=== PATIENT | male | born 1955 | race African-American/Black ===

== ENCOUNTER 2024-08-28 12:21 | Observation (INO) ==
--- NOTE | 2024-08-28 12:39 | Emergency Department Note ---
HPI - Dental/Oral General Chief complaint: Dental/Oral Stated complaint: face swollen Time Seen by Provider: 08/28/24 12:24 Source: patient Mode of arrival: walk-in Limitations: no limitations History of Present Illness HPI Narrative: 68 Y/O Male presents to the ED with c/o of left facial swelling since Tuesday morning, denies fever, chills, reports he can barely eat or drink with the swelling. Onset (ago): day(s) (4) Duration: constant Severity: moderate Relieving factors: Reports nothing Exacerbating factors: Reports swallowing Associated symptoms: Reports gum swelling and pain with swallowing; Denies ear pain or sore throat Treatment prior to arrival: Reports none Related Data Previous Rx's Medication Instructions Recorded cephalexin 500 mg capsule 500 mg PO Q8H toe infection 7 days 03/23/24 #21 caps Allergies Allergy/AdvReac Type Severity Reaction Status Date / Time No Known Drug Allergies Allergy Verified 08/28/24 12:52 PFSH PFSH Medical History Thrombocytosis HTN (hypertension) Social History Smoking status: current every day smoker What tobacco products do you use: cigarettes Cigarettes per day: 4 Within the past year, how often did you have a drink containing alcohol: never Score interpretation: A score less than 4 is consistent with normal alcohol consumption. Non-prescribed substance use: denies use Little interest or pleasure in doing things: not at all Feeling down, depressed, or hopeless: not at all Exam Exam: 68 Y/o male presents to the ED with conc erns for swelling of the left face for the last 4 days. Denies recent facial injury. Denies recent oral surgery. Denies fever or chills. Denies bleeding gums or uncontrolled drooling. Reports pain with swallowing. Constitutional: normal general appearance and no apparent distress Vital Signs - 24 hr 08/28/24 12:25 08/28/24 13:00 08/28/24 13:10 Temperature 98.7 F Pulse Rate 95 H 92 H 95 H Respiratory Rate 16 16 16 Blood Pressure 145/104 139/101 129/89 Pulse Oximetry 98 98 98 Oxygen Delivery Me thod Room Air Room Air Room Air 08/28/24 13:30 08/28/24 14:00 08/28/24 14:30 Temperature Pulse Rate 92 H 93 H 92 H Respiratory Rate 16 16 16 Blood Pressure 147/97 139/97 140/95 Pulse Oximetry 98 98 98 Oxygen Delivery Me thod Room Air Room Air Room Air 08/28/24 15:00 08/28/24 15:30 08/28/24 16:00 Temperature Pulse Rate 90 88 91 H Respiratory Rate 16 16 16 Blood Pressure 137/96 141/92 152/93 Pulse Oximetry 98 98 98 Oxygen Delivery Me thod Room Air Room Air Room Air HENMT: normocephalic and oral mucous membranes normal Facial swelling noted. Gingiva swelling noted, left upper back. Eyes: PERRL and EOMs intact bilaterally Lymph: no lymphadenopathy noted Chest: inspection of chest normal Respiratory: breath sounds equal bilaterally, normal respiratory effort, no retractions and no use of accessory muscles Cardiovascular: normal heart rate noted and regular rhythm noted Gastrointestinal: abdomen soft to palpation Extremities: normal to inspection, normal to palpation and no tenderness Neurology: gait normal, speech normal and GCS normal Psychiatry: oriented x3, cooperative, affect normal and memory normal Skin: skin color normal Course Course Hospital Course: Patient seen today for facial swelling, left side for the last 4 days. Denies any facial injuries. CT noted facial cellulitis. WBC elevated. Patient admitted for IV antibiotic therapy. I spoke with Dr. Zhao who agrees to accept and assume care of this patient. Clindamycin IV ordered Q8 hours PRN pain and Antiemetic ordered. Reevaluation(s) Reevaluation #1: Patient is satble and reports pain free at this time. We discussed admission plans, patient agrees to admission. Time: 16:08 Vital Signs Vital signs: Vital Signs Temperature 98.7 F 08/28/24 12:25 Pulse Rate 95 H 08/28/24 12:25 Respiratory Rate 16 08/28/24 12:25 Blood Pressure 145/104 08/28/24 12:25 Pulse Oximetry 98 08/28/24 12:25 Oxygen Delivery Method Room Air 08/28/24 12:25 Temperature 98.7 F 08/28/24 12:25 Pulse Rate 91 H 08/28/24 16:00 Respiratory Rate 16 08/28/24 16:00 Blood Pressure 152/93 08/28/24 16:00 Pulse Oximetry 98 08/28/24 16:00 Oxygen Delivery Method Room Air 08/28/24 16:00 MDM - Dental/Oral Differential Diagnosis Differential diagnosis: Likely dental caries Medical Records Attestation: I reviewed the patient's medical records. Lab Data Attestation: I reviewed the patient's lab results. Labs: Lab Results 08/28/24 Range/Units 12:45 WBC 9.7 H (3.7-9.6) K/uL RBC 4.2 L (4.40-5.80) M/uL Hgb 16.5 (14.0-17.4) gm/dL Hct 47.8 (41.3-50.1) % MCV 112.8 H (81.9-96.5) fl MCH 39.1 H (27.6-33.7) pg MCHC 34.6 (33.0-35.7) g/dl RDW 15.2 H (11.0-14.8) % Plt Count 491 H (142-355) K/uL MPV 8.9 (6.0-10.4) fl Gran % 73.4 H (49.1-73.1) % Lymph % (Auto) 10.4 L (17.6-39.05) % [place] % (Auto) 15.6 H (4.5-10.7) % Eos % (Auto) 0.2 (0.0-4.0) % Baso % (Auto) 0.4 (0.0-1.3) Lymph # (Auto) 1.0 (0.8-2.9) [place] # (Auto) 1.5 H (0.2-0.8) Eos # (Auto) 0.0 (0.0-0.3) Baso # (Auto) 0.0 (0.0-0.1) Absolute Gran (auto) 7.1 H (2.0-6.2) Sodium 137 (136-145) mmol/L Potassium 4.3 (3.6-5.2) mmol/L Chloride 98.0 (98-107) mmol/L Carbon Dioxide 30 (21-32) mmol/L Anion Gap 9.0 (4-14) mEq/L BUN 8 (7-18) mg/dL Creatinine 1.0 (0.6-1.3) mg/dL Estimated GFR 82.5 (>59.9) Glucose 123 H (70-110) mg/dL Calcium 9.7 (8.5-10.1) mg/dL Imaging Data Imaging ordered: other Attestation: I have reviewed the pertinent imaging results. My impression: CT FACIAL BONES W CON HISTORY: LEFT SIDE FACIAL SWELLING; . COMPARISON STUDY: None. TECHNIQUE: Multiple thin section axial images were obtained through the facial bones with IV contrast. Coronal reformatted images were obtained. The above CT scan was done with automated exposure control and the mA and kV was adjusted to obtain quality images according to patient size. FINDINGS: There is no evidence of fracture. Visualized sinuses are clear. Orbits are intact. There is cellulitis adjacent to the left mandible anteriorly in the submental region. There is a small abscess measuring 1.7 x 1.2 cm. No radiopaque foreign body, subcutaneous emphysema or bony destructive changes are present.. Globes and retroorbital structures are intact. Zygomas, TMJs and mandible are intact. No osteolytic or osteoblastic lesions are noted. Chronic bilateral maxillary sinusitis. No air-fluid levels noted. IMPRESSION: Cellulitis with small abscess on the left adjacent to the left mandible anteriorly in the submental region. THIS IS AN ELECTRONICALLY VERIFIED FINAL REPORT 08/28/2024 4:02 PM - Electronically signed by Jono Gould MD Discharge Plan Discharge Patient Disposition: Admitted As Inpatient Condition: Stable Clinical Impression: Facial cellulitis Time of Disposition: 16:13
[2024-08-28 13:02] LABS: Basophils%(Percent) Auto 0.4 (0.0-1.3); Eosinophils%(Percent) Auto 0.2 % (0.0-4.0); Granulocytes % - Auto 73.4 % (49.1-73.1); Granulocytes#(Absolute)- Auto 7.1 (2.0-6.2); Hematocrit 47.8 % (41.3-50.1); Mean Corpuscular Volume 112.8 fl (81.9-96.5); Monocytes #(Absolute)- Auto 1.5 (0.2-0.8); Monocytes %(Percent)- Auto 15.6 % (4.5-10.7); Platelet Count 491 K/uL (142-355); White Blood Count 9.7 K/uL (3.7-9.6)
[2024-08-28 13:11] LABS: Potassium 4.3 mmol/L (3.6-5.2)
[2024-08-28] MEDS ORDERED: ONDANSETRON HCL/PF 4 MG/2 ML VIAL IVP PRN (16:14)
[2024-08-28] MEDS ORDERED: MORPHINE SULFATE 4 MG/ML CARTRIDGE IVP PRN (16:14)
[2024-08-28] MEDS: CLINDAMYCIN PHOSPHATE/D5W 300 MG/50 ML PIGGYBACK IV SCH (16:16)
[2024-08-28] MEDS: SODIUM CHLORIDE 0.9% IV SCH (17:34)
[2024-08-28] MEDS: AMPICILLIN IV SCH (17:34)
[2024-08-28] MEDS: SULBACTAM IV SCH (17:34)
[2024-08-28 23:54] LABS: Amphetamine Screen Urine NEG. (NEGATIVE); Cannabinoid Screen Urine POS. (NEGATIVE); Cocaine Screen Urine NEG. (NEGATIVE); Methadone Screen Urine NEG. (NEGATIVE); Opiate Screen Urine NEG. (NEGATIVE)
[2024-08-29] MEDS: hydrOXYzine pamoate 25 MG CAPSULE PO ONE (02:45)
[2024-08-29 06:45] LABS: Basophils%(Percent) Auto 0.4 (0.0-1.3); Eosinophils%(Percent) Auto 0.3 % (0.0-4.0); Granulocytes % - Auto 71.1 % (49.1-73.1); Granulocytes#(Absolute)- Auto 7.6 (2.0-6.2); Hematocrit 42.4 % (41.3-50.1); Mean Corpuscular Volume 111.7 fl (81.9-96.5); Monocytes #(Absolute)- Auto 1.7 (0.2-0.8); Monocytes %(Percent)- Auto 16.2 % (4.5-10.7); Platelet Count 439 K/uL (142-355); White Blood Count 10.7 K/uL (3.7-9.6)
[2024-08-29 06:58] LABS: Potassium 3.7 mmol/L (3.6-5.2)
[2024-08-29] MEDS: MAGNESIUM OXIDE 400 MG TABLET PO ONE (09:38)
[2024-08-29] MEDS: MORPHINE SULFATE 2 MG/ML CARTRIDGE IV PRN (10:15)
--- NOTE | 2024-08-29 11:14 | History & Physical Report ---
H&P: HPI History of Present Illness Chief complaint: Facial Cellulitis Narrative: 68 Y/o male presents to the ED with concerns for swelling of the left face for the last 4 days. Denies recent facial injury. Denies recent oral surgery. Denies fever or chills. Denies bleeding gums or uncontrolled drooling. Reports pain with swallowing. Admitted patient to med/surg for observation and treatment. Review of Systems Status of ROS 10 or more systems reviewed and unremark able except as noted in history and below Constitutional Denies: fever, chills, change in weight or fatigue Eyes Denies: change in vision, blurry vision, blind spots or light sensitivity Ears, nose, mouth, and throat Reports: difficulty swallowing, mouth pain, swelling of lips/tongue and other (cheek swelling); Denies: throat pain, neck pain, throat swelling, hoarseness, dry mouth, bad breath, ear pain, ear discharge, change in hearing, tinnitus, vertigo, nasal discharge, nasal congestion, nose bleeds or post nasal drip Cardiovascular Denies: chest pain, palpitations, edema or shortness of breath with exertion Respiratory Denies: shortness of breath, cough or wheezing Gastrointestinal Denies: abdominal pain, nausea or vomiting Genitourinary Denies: painful urination, urinary frequency or urinary urgency Musculoskeletal Denies: back pain, neck pain, extremity pain, extremity swelling or joint pain Integumentary/Breast Reports: skin swelling (left cheek swelling); Denies: rash, itching, redness, skin pain, skin tenderness or sores Neurological Denies: headache, numbness in extremities, weakness in extremities or lack of coordination Psychiatric Denies: anxiety, mood swings or panic attacks Endocrine Denies: excessive urination, excessive thirst or fatigue Hematologic/Lymphatic Denies: easy bruising, easy bleeding or enlarged lymph nodes Allergic/Immunologic Reports: facial swelling (cellulitis of left cheek) [facility] Medical History Thrombocytosis HTN (hypertension) Social History Smoking status: current every day smoker What tobacco products do you use: cigarettes Cigarettes per day: 4 Within the past year, how often did you have a drink containing alcohol: never Score interpretation: A score less than 4 is consistent with normal alcohol consumption. Non-prescribed substance use: denies use Problems where you live: no known problems Highest level of school completed/degree received: College Little interest or pleasure in doing things: not at all Feeling down, depressed, or hopeless: not at all Meds Home Medications and Allergies Home Medications Medication Instructions Recorded Confirmed Type aspirin 81 mg tablet,delayed 81 mg PO DAILY 08/29/24 08/29/24 History release ergocalciferol (vitamin D2) 1,250 1,250 mcg PO QWEEK 08/29/24 08/29/24 History mcg (50,000 unit) capsule (Vitamin D2) hydroxyurea 500 mg capsule 500 mg PO DAILY 08/29/24 08/29/24 History magnesium 1 tab PO DAILY 08/29/24 08/29/24 History metoprolol succinate 50 mg 50 mg PO QAM 08/29/24 08/29/24 History tablet,extended release 24 hr Allergies Allergy/AdvReac Type Severity Reaction Status Date / Time No Known Drug Allergies Allergy Verified 08/28/24 12:52 Exam Exam: Patient resting on right side upon entering room for exam. Swelling of left cheek through lips is visible; some improvement from previous day exam. Swelling is no longer reaching up through top of jawline; it has localized to cheek and lip area. Constitutional: normal general appearance, distress noted (mild), average body habitus, limitations noted (Hard to talk with swelling) and alert Vital Signs - 24 hr 08/28/24 12:25 08/28/24 13:00 08/28/24 13:10 Temperature 98.7 F Pulse Rate 95 H 92 H 95 H Pulse Rate [Right] Respiratory Rate 16 16 16 Blood Pressure 145/104 139/101 129/89 Blood Pressure [Le ft Radial Artery] Pulse Oximetry 98 98 98 Oxygen Delivery Me thod Room Air Room Air Room Air 08/28/24 13:30 08/28/24 14:00 08/28/24 14:30 Temperature Pulse Rate 92 H 93 H 92 H Pulse Rate [Right] Respiratory Rate 16 16 16 Blood Pressure 147/97 139/97 140/95 Blood Pressure [Le ft Radial Artery] Pulse Oximetry 98 98 98 Oxygen Delivery Me thod Room Air Room Air Room Air 08/28/24 15:00 08/28/24 15:30 08/28/24 16:00 Temperature Pulse Rate 90 88 91 H Pulse Rate [Right] Respiratory Rate 16 16 16 Blood Pressure 137/96 141/92 152/93 Blood Pressure [Le ft Radial Artery] Pulse Oximetry 98 98 98 Oxygen Delivery Me thod Room Air Room Air Room Air 08/28/24 16:56 08/28/24 17:16 08/28/24 19:57 Temperature 98.7 F Pulse Rate 90 Pulse Rate [Right] 93 H 95 H Respiratory Rate 19 16 17 Blood Pressure 148/90 Blood Pressure [Le ft Radial Artery] 146/96 Pulse Oximetry 98 98 97 Oxygen Delivery Il thod Room Air Room Air 08/28/24 23:29 08/29/24 03:40 08/29/24 08:00 Temperature 98.7 F 98.7 F 98.6 F Pulse Rate Pulse Rate [Right] 94 H 101 H 92 H Respiratory Rate 19 20 20 Blood Pressure Blood Pressure [Le ft Radial Artery] 147/87 120/85 138/93 Pulse Oximetry 98 97 97 Oxygen Delivery Il thod Room Air Room Air Room Air HENMT: normocephalic, head/scalp atraumatic, hearing grossly normal bilaterally, external ears normal, nasal mucous membranes normal, external nose normal, oral mucous membranes abnormal (cellulitis of left cheek), oropharynx normal, dentition normal and gingiva normal Eyes: PERRL, EOMs intact bilaterally, conjunctivae normal, fundi normal bilaterally, alignment normal, periorbital findings normal and visual acuity normal Neck/C-Spine: visual inspection normal and trachea midline Lymph: no lymphadenopathy noted and no lymphedema noted Chest: inspection of chest normal and palpation of chest normal Respiratory: breath sounds equal bilaterally, normal respiratory effort, clear to auscultation bilaterally and no wheezes Cardiovascular: normal heart rate noted, regular rhythm noted and no murmur Gastrointestinal: abdomen normal to inspection, abdomen soft to palpation, nontender to palpation, nondistended and normoactive bowel sounds Genitourinary: no CVA tenderness and bladder normal to palpation Back/Pelvis: spine normal to inspection, no thoracic spine tenderness, no lumbar spine tenderness, thoracic spine ROM normal and lumbar spine ROM normal Extremities: normal to inspection, normal to palpation, no tenderness, full ROM and no deformity 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, no movement abnormality noted, gait normal and speech normal Psychiatry: Mental Status Exam documented within this Exam's Psych section mental status grossly normal, oriented x3, thought process normal, cooperative, affect normal, psychomotor activity normal and memory normal Skin: skin color normal, no rash, no lesions, no ecchymosis noted, no wounds and skin turgor normal Assessment and Plan Assessment and Plan (1) Abscess of left internal cheek: Assessment and Plan: Clindamycin Phosphate/Dextrose 300 mg in 50 mls @ 50 mls/hr IV Q8H Ampicillin Sodium/Sulbactam Sodium 3 gm in Sodium Chloride 100 mls @ 200 mls/hr IV Q6H Culture taken from leaking abscess. Code(s): K12.2 - Cellulitis and abscess of mouth (2) Cellulitis of left external cheek: Assessment and Plan: Clindamycin Phosphate/Dextrose 300 mg in 50 mls @ 50 mls/hr IV Q8H Ampicillin Sodium/Sulbactam Sodium 3 gm in Sodium Chloride 100 mls @ 200 mls/hr IV Q6H Code(s): L03.211 - Cellulitis of face (3) Pain of cheek: Assessment and Plan: Morphine Sulfate 2 mg IV Q6H PRN Code(s): R51.9 - Headache, unspecified (4) Marijuana abuse: Assessment and Plan: Resources offered for rehab for marijuana abuse. Code(s): F12.10 - Cannabis abuse, uncomplicated Plan Culture taken from leaking abscess on inside of left cheek. Continue current plan of treatment with antibiotics and pain management. Results Labs Labs: CBC WBC 10.7 K/uL (3.7-9.6) H 08/29/24 06:30 RBC 3.8 M/uL (4.40-5.80) L 08/29/24 06:30 Hgb 14.4 gm/dL (14.0-17.4) 08/29/24 06:30 Hct 42.4 % (41.3-50.1) 08/29/24 06:30 MCV 111.7 fl (81.9-96.5) H 08/29/24 06:30 MCH 37.9 pg (27.6-33.7) H 08/29/24 06:30 MCHC 33.9 g/dl (33.0-35.7) 08/29/24 06:30 RDW 14.8 % (11.0-14.8) 08/29/24 06:30 Plt Count 439 K/uL (142-355) H 08/29/24 06:30 MPV 8.5 fl (6.0-10.4) 08/29/24 06:30 Gran % 71.1 % (49.1-73.1) 08/29/24 06:30 Lymph % (Auto) 12.0 % (17.6-39.05) L 08/29/24 06:30 [place] % (Auto) 16.2 % (4.5-10.7) H 08/29/24 06:30 Eos % (Auto) 0.3 % (0.0-4.0) 08/29/24 06:30 Baso % (Auto) 0.4 (0.0-1.3) 08/29/24 06:30 Lymph # (Auto) 1.3 (0.8-2.9) 08/29/24 06:30 [place] # (Auto) 1.7 (0.2-0.8) H 08/29/24 06:30 Eos # (Auto) 0.0 (0.0-0.3) 08/29/24 06:30 Baso # (Auto) 0.0 (0.0-0.1) 08/29/24 06:30 Absolute Gran (auto) 7.6 (2.0-6.2) H 08/29/24 06:30 BMP Sodium 137 mmol/L (136-145) 08/29/24 06:30 Potassium 3.7 mmol/L (3.6-5.2) 08/29/24 06:30 Chloride 100.0 mmol/L (98-107) 08/29/24 06:30 Carbon Dioxide 28 mmol/L (21-32) 08/29/24 06:30 Anion Gap 9.0 mEq/L (4-14) 08/29/24 06:30 BUN 8 mg/dL (7-18) 08/29/24 06:30 Creatinine 0.9 mg/dL (0.6-1.3) 08/29/24 06:30 Estimated GFR 93.6 (>59.9) 08/29/24 06:30 Glucose 104 mg/dL (70-110) 08/29/24 06:30 Calcium 8.8 mg/dL (8.5-10.1) 08/29/24 06:30 Phosphorus 3.6 mg/dL (2.5-4.9) 08/29/24 06:30 Magnesium 1.7 mg/dL (1.8-2.4) L 08/29/24 06:30 Total Bilirubin 2.15 mg/dL (0.0-1.0) H 08/29/24 06:30 AST 28 U/L (15-37) 08/29/24 06:30 ALT 21 U/L (30-65) L 08/29/24 06:30 Alkaline Phosphatase 99 U/L (50-136) 08/29/24 06:30 Total Protein 7.3 g/dL (6.4-8.2) 08/29/24 06:30 Albumin 3.3 g/dL (3.4-5.0) L 08/29/24 06:30 Liver Function Total Bilirubin 2.15 mg/dL (0.0-1.0) H 08/29/24 06:30 AST 28 U/L (15-37) 08/29/24 06:30 ALT 21 U/L (30-65) L 08/29/24 06:30 Alkaline Phosphatase 99 U/L (50-136) 08/29/24 06:30 Total Protein 7.3 g/dL (6.4-8.2) 08/29/24 06:30 Albumin 3.3 g/dL (3.4-5.0) L 08/29/24 06:30 Imaging Imaging ordered: other (Face CT) Radiologist's impression: CT FACIAL BONES W CON Date of Service: 08/28/24 HISTORY: LEFT SIDE FACIAL SWELLING; . COMPARISON STUDY: None. TECHNIQUE: Multiple thin section axial images were obtained through the facial bones with IV contrast. Coronal reformatted images were obtained. The above CT scan was done with automated exposure control and the mA and kV was adjusted to obtain quality images according to patient size. FINDINGS: There is no evidence of fracture. Visualized sinuses are clear. Orbits are intact. There is cellulitis adjacent to the left mandible anteriorly in the submental region. There is a small abscess measuring 1.7 x 1.2 cm. No radiopaque foreign body, subcutaneous emphysema or bony destructive changes are present.. Globes and retroorbital structures are intact. Zygomas, TMJs and mandible are intact. No osteolytic or osteoblastic lesions are noted. Chronic bilateral maxillary sinusitis. No air-fluid levels noted. IMPRESSION: Cellulitis with small abscess on the left adjacent to the left mandible anteriorly in the submental region.
[2024-08-29] MEDS: HYDROXYUREA 500 MG CAPSULE PO SCH (16:42)
[2024-08-29] MEDS: ASPIRIN 81 MG TABLET.DR PO SCH (16:42)
[2024-08-29] MEDS: METOPROLOL SUCCINATE 25 MG TAB.ER.24H PO SCH (16:42)
[2024-08-29] MEDS: VANCOMYCIN/WATER 750 MG 750 MG/150 ML PIGGYBACK IV SCH (17:40)
[2024-08-30 05:43] LABS: Basophils%(Percent) Auto 0.4 (0.0-1.3); Eosinophils#(Absolute)Auto 0.1 (0.0-0.3); Eosinophils%(Percent) Auto 0.9 % (0.0-4.0); Granulocytes#(Absolute)- Auto 6.5 (2.0-6.2); Hematocrit 41.3 % (41.3-50.1); Mean Corpuscular Volume 112.5 fl (81.9-96.5); Monocytes #(Absolute)- Auto 1.5 (0.2-0.8); Monocytes %(Percent)- Auto 14.7 % (4.5-10.7); Platelet Count 452 K/uL (142-355); White Blood Count 9.9 K/uL (3.7-9.6)
[2024-08-30 05:59] LABS: Potassium 3.5 mmol/L (3.6-5.2)
[2024-08-30 09:19] VITALS: BP 138/91; PULSE 77; RESP 19; TEMP 98.3
[2024-08-30] MEDS: MAGNESIUM PO SCH (09:36)
--- NOTE | 2024-08-30 11:41 | Event Note ---
Event Note Event Note: Late Entry: 08/29/24 @ 0225 Rec'd call from LUIZ Alonso stating pt is asking for something to help him rest. One time dose of Vistaril 25mg PO ordered.
[2024-08-30] MEDS: LOSARTAN POTASSIUM 50 MG TABLET PO ONE (11:49)
[2024-08-30] MEDS: POTASSIUM CHLORIDE 20 MEQ TAB.ER.PRT PO ONE (11:49)
--- NOTE | 2024-08-30 15:37 | Discharge Summary ---
DS: Providers Provider Date of admission: 08/28/24 16:51 Primary care physician: Dylan Huddleston MD Admitting clinician: Josie Whiting Attending physician on admission: Katie Zhao Attending physician on discharge: Katie Zhao Discharging clinician: Katie Zhao Anticipated date of discharge: 08/30/24 DS: Diagnosis Discharge Diagnosis (1) Abscess of left internal cheek: (2) Cellulitis of left external cheek: (3) Pain of cheek: (4) Marijuana abuse: Plan Swelling has improved. Patient is ready to be discharged home for self care. DS: Summary Hospital Course Hospital Course: 68 Y/o male presents to the ED with concerns for swelling of the left face for the last 4 days. Denies recent facial injury. Denies recent oral surgery. Denies fever or chills. Denies bleeding gums or uncontrolled drooling. Reports pain with swallowing. Admitted patient to med/surg for observation and treatment. Day 1 of hospital stay, hospitalist performed an Incision and Drainage procedure of the abscess on the interior left cheek with an 18 gauge needle. Patient continued on Clindamycin Phosphate/Dextrose 300 mg in 50 mls @ 50 mls/hr IV Q8H, Ampicillin Sodium/Sulbactam Sodium 3 gm in Sodium Chloride 100 mls @ 200 mls/hr IV Q6H, and Morphine Sulfate 2 mg IV Q6H PRN for pain. Day 2 of hospital stay, patients swelling has markedly improved. Swelling has localized to the left side of his mouth. Patient is ready to discharge home with continued PO antibiotics and administer warm compresses to area as tolerated. Hospitalist recommends following up with PCP in 3-7 days of discharge, sooner if swelling worsens or return to the ER if unable to see PCP. Education was given for smoking nicotine and Cannibis for cessation, however, patient states he is not yet ready to stop. Status at Discharge Functional status at discharge: independent ambulation Overall status at discharge: patient is progressing back to baseline Time Spent with Patient Time attestation: Total time spent providing and/or coordinating discharge services: Time spent: greater than 30 minutes Exam Exam Patient in low hurtado's position upon entering room for exam. Constitutional normal general appearance, no apparent distress, average body habitus, no limitations and alert Vital Signs - 24 hr 08/29/24 16:00 08/29/24 20:00 08/30/24 00:00 Temperature 98.2 F 99.2 F 98.8 F Pulse Rate [Right] 86 91 H 86 Respiratory Rate 20 18 20 Blood Pressure [Left Radial Artery] 151/92 146/71 131/83 Pulse Oximetry 96 98 99 Oxygen Delivery Method Room Air Room Air Room Air 08/30/24 04:00 08/30/24 08:00 Temperature 98.8 F 98.3 F Pulse Rate [Right] 82 77 Respiratory Rate 20 19 Blood Pressure [Left Radial Artery] 147/95 138/91 Pulse Oximetry 98 98 Oxygen Delivery Method Room Air Room Air [facility] normocephalic, head/scalp atraumatic, hearing grossly normal bilaterally, external ears normal, nasal mucous membranes normal, external nose normal, oral mucous membranes abnormal (cellulitis of left cheek), oropharynx normal, dentition normal and gingiva normal Facial swelling noted Eyes PERRL, EOMs intact bilaterally, conjunctivae normal, fundi normal bilaterally, alignment normal, periorbital findings normal and visual acuity normal Neck/C-Spine visual inspection normal and trachea midline Lymph no lymphadenopathy noted and no lymphedema noted Chest inspection of chest normal and palpation of chest normal Respiratory breath sounds equal bilaterally, normal respiratory effort, clear to auscultation bilaterally, no wheezes, no retractions and no use of accessory muscles Cardiovascular normal heart rate noted, regular rhythm noted and no murmur Gastrointestinal abdomen normal to inspection, abdomen soft to palpation, nontender to palpation, nondistended and normoactive bowel sounds Genitourinary no CVA tenderness and bladder normal to palpation Back/Pelvis spine normal to inspection, no thoracic spine tenderness, no lumbar spine tenderness, thoracic spine ROM normal and lumbar spine ROM normal Extremities normal to inspection, normal to palpation, no tenderness, full ROM and no deformity Neurology barrel drum cutter II-XII intact, no movement abnormality noted, gait normal, speech normal and GCS normal Psychiatry Mental Status Exam documented within this Exam's Psych section mental status grossly normal, oriented x3, thought process normal, cooperative, affect normal, psychomotor activity normal and memory normal Skin skin color normal, no rash, no lesions, no ecchymosis noted, no wounds and skin turgor normal DS: Data Data Completed and Pending Labs on day of discharge: Labs from last 24 hours 08/30/24 05:20 WBC 9.9 H RBC 3.7 L Hgb 14.1 Hct 41.3 MCV 112.5 H MCH 38.5 H MCHC 34.2 RDW 15.1 H Plt Count 452 H MPV 8.6 Gran % 66.0 Lymph % (Auto) 18.0 [place] % (Auto) 14.7 H Eos % (Auto) 0.9 Baso % (Auto) 0.4 Lymph # (Auto) 1.8 [place] # (Auto) 1.5 H Eos # (Auto) 0.1 Baso # (Auto) 0.0 Absolute Gran (auto) 6.5 H Sodium 136 Potassium 3.5 L Chloride 100.0 Carbon Dioxide 26 Anion Gap 10.0 BUN 6 L Creatinine 0.8 Estimated GFR 97.0 Glucose 97 Calcium 8.7 Phosphorus 3.4 Magnesium 1.8 Total Bilirubin 1.57 H AST 25 ALT 18 L Alkaline Phosphatase 92 B-Natriuretic Peptide 141.0 H Total Protein 7.0 Albumin 3.0 L Preliminary micro results at discharge 08/29/24 10:21 Wound Culture - Preliminary Abscess - Abscess Imaging Face CT: Radiologist's impression: CT FACIAL BONES W CON Date of Service: 08/28/24 HISTORY: LEFT SIDE FACIAL SWELLING; . COMPARISON STUDY: None. TECHNIQUE: Multiple thin section axial images were obtained through the facial bones with IV contrast. Coronal reformatted images were obtained. The above CT scan was done with automated exposure control and the mA and kV was adjusted to obtain quality images according to patient size. FINDINGS: There is no evidence of fracture. Visualized sinuses are clear. Orbits are intact. There is cellulitis adjacent to the left mandible anteriorly in the submental region. There is a small abscess measuring 1.7 x 1.2 cm. No radiopaque foreign body, subcutaneous emphysema or bony destructive changes are present.. Globes and retroorbital structures are intact. Zygomas, TMJs and mandible are intact. No osteolytic or osteoblastic lesions are noted. Chronic bilateral maxillary sinusitis. No air-fluid levels noted. IMPRESSION: Cellulitis with small abscess on the left adjacent to the left mandible anteriorly in the submental region. Discharge Plan Discharge Disposition: Home, Self-Care Condition: Stable Discharge Medications: New penicillin V potassium 500 mg tablet 500 mg PO TID Qty: 20 0RF clindamycin HCl 300 mg capsule 300 mg PO Q6H Qty: 30 0RF losartan 50 mg tablet 50 mg PO DAILY Qty: 30 0RF Continued ergocalciferol (vitamin D2) [Vitamin D2] 1,250 mcg (50,000 unit) capsule 1,250 mcg PO QWEEK Patient Comments: Patient said he doesn't take it every week, just every now and then. metoprolol succinate 50 mg tablet extended release 24 hr 50 mg PO QAM hydroxyurea 500 mg capsule 500 mg PO DAILY aspirin 81 mg tablet,delayed release (DR/EC) 81 mg PO DAILY magnesium 1 tab PO DAILY Discharge Orders: Discharge Order (Routine); Ordered 08/30/24 Ordered By: Katie Zhao Activity: increase activity as tolerated Diet: low fat, low cholesterol Interventions: Discharge Assessment Last Done: 08/30/24 11:07 MED/SURG & ICU Observation Charge Sheet Last Done: 08/30/24 06:27 Activity Restrictions/Additional Instructions: continue warm compresses as tolerated while awake dental appointment to be made follow p PCP in 3-7 days and sooner if swelling recurs or patient can return to the ER if PCP unavailable education for 14 minutes total on smoking nicotine and Cannibis need for cessation and tips and guaidance on how to stop and patient states he is not yet ready to stop. Forms: Portal/Health Info Access Inst Follow-Ups: Dylan Huddleston MD [Primary Care Provider] - ([facility] [place] WILL CONTACT PATIENT WITH A FOLLOW UP APPOINTMENT) Discharge Date/Time: 08/30/24 11:50 Incision and Drainage Incision and drainage performed by: Katie Zhao Informed consent given: Yes Consent signed: Yes
[2024-09-05] MEDS ORDERED: ERGOCALCIFEROL (VITAMIN D2) 1,250 MCG CAPSULE PO SCH (09:00)
== END 2024-08-30 11:50 | disposition home or self-care (01) ==
LOC: ED 12:21 → MS 12:21
PROVIDERS: ADMIT Family Medicine; ATTEND Family Medicine
DX: K12.2 Cellulitis and abscess of mouth; L03.211 Cellulitis of face; I10 Essential (primary) hypertension; Z72.0 Tobacco use; R51.9 Headache, unspecified; F12.10 Cannabis abuse, uncomplicated